=== PATIENT | female | born 1960 | race Hispanic/Latino ===

== ENCOUNTER 2020-09-16 15:36 | Inpatient (IN) | payer MEDICARE ==
[~2020-09-16] VITALS: Ht 162.6 cm; Wt 72.6 kg
[2020-09-16 16:57] LABS: BASOPHILS # (AUTO) 0.1 (0.0-0.1); BASOPHILS % 1.1 % (0.0-1.0); EOSINOPHILS # (AUTO) 0.1 (0.0-0.4); HEMATOCRIT 26.3 % (34.2-44.1); LYMPHOCYTES # (AUTO) 2.4 (1.0-3.2); MEAN CORPUSCULAR HEMOGLOBIN 19.7 pg (28-32); MEAN CORPUSCULAR HGB CONC 30.4 g/dL (31-35); MEAN CORPUSCULAR VOLUME 64.8 fL (81-99); MONOCYTES # (AUTO) 0.7 (0.2-0.8); MONOCYTES % 6.1 % (4.4-11.3); NEUTROPHILS % 70.1 % (38.7-80.0); PLATELET COUNT 491 x10e3/uL (140-360); RED BLOOD COUNT 4.06 x10e6/uL (3.6-5.1); RED CELL DISTRIBUTION WIDTH 16.6 % (11.7-14.4)
[2020-09-16 17:15] LABS: ALANINE AMINOTRANSFERASE 10 IU/L (0-55); ALBUMIN 3.9 g/dL (3.5-5.0); ALBUMIN/GLOBULIN RATIO 1.2 (0.8-2.0); ALKALINE PHOSPHATASE 65 IU/L (40-150); ANION GAP 17.7 mmol/L (8-16); BLOOD UREA NITROGEN 13 mg/dL (7-26); BUN/CREATININE RATIO 15 (6-25); CALCIUM 8.7 mg/dL (8.4-10.2); CARBON DIOXIDE 27 mmol/L (22-29); CHLORIDE 83 mmol/L (98-107); CREATINE KINASE 58 IU/L (29-168); CREATININE, SERUM 0.88 mg/dL (0.57-1.11); EST GLOMERULAR FILTRATION RATE > 60 ML/MIN (60-); GLUCOSE 119 mg/dL (74-118); SODIUM 125 mmol/L (136-145)
[2020-09-16 17:20] LABS: POTASSIUM 2.7 mmol/L (3.5-5.1)
[2020-09-16] MEDS ORDERED: POTASSIUM CHLORIDE 20 MEQ TAB CR PO STA (18:28)
[2020-09-16] MEDS ORDERED: ONDANSETRON HCL INJ 2MG/ML 2ML 2 MG/ML VIAL IV STA (18:28)
[2020-09-16] MEDS ORDERED: MORPHINE SULFATE INJ 4 MG/ML INJ 1ML IV ONE (18:30)
[2020-09-16 19:54] LABS: AMPHETAMINES SCREEN,URINE NEGATIVE (NEGATIVE); BENZODIAZEPINES SCREEN,URINE NEGATIVE (NEGATIVE); PHENCYCLIDINE SCREEN,URINE NEGATIVE (NEGATIVE)
[2020-09-16 20:30] VITALS: BP 158/74
[2020-09-16 20:47] VITALS: BP 158/74
[2020-09-16] MEDS ORDERED: LISINOPRIL40 MG PO (22:29)
[2020-09-16] MEDS ORDERED: LEVOTHYROXINE112 MCG PO (22:29)
[2020-09-16] MEDS ORDERED: ATORVASTATIN CA20 MG PO (22:29)
[2020-09-16] MEDS ORDERED: OMEPRAZOLE40 MG PO (22:29)
[2020-09-16] MEDS ORDERED: CYMBALTA30 MG (22:29)
[2020-09-16] MEDS ORDERED: METFORMIN HCL500 MG PO (22:29)
[2020-09-16] MEDS ORDERED: CLONAZEPAM0.5 MG PO (22:29)
[2020-09-16] MEDS ORDERED: LINZESS145 MCG PO (22:29)
[2020-09-16] MEDS ORDERED: NEURONTIN300 MG PO (22:29)
[2020-09-16] MEDS ORDERED: ULTRAM50 MG PO (22:29)
[2020-09-16] MEDS ORDERED: TRAMADOL HCL 50 MG TAB PO SCH (23:45)
[2020-09-16] MEDS ORDERED: ESIDRIX25 MG PO (23:48)
[2020-09-17] VITALS (10 sets, daily range): BP systolic 71–153; BP diastolic 48–76
[2020-09-17] MEDS: LISINOPRIL 20 MG TAB PO SCH ×2 (00:17→08:57)
[2020-09-17] MEDS: ATORVASTATIN 20 MG TAB PO SCH ×2 (00:17→20:29)
[2020-09-17] MEDS: GABAPENTIN 300 MG CAP PO SCH ×3 (00:17→16:07)
[2020-09-17 07:01] LABS: CLARITY,URINE CLEAR (CLEAR); COLOR,URINE YELLOW (YELLOW); KETONES,URINE NEGATIVE (NEGATIVE); LEUKOCYTE ESTERASE ,URINE NEGATIVE (NEGATIVE); NITRITE,URINE NEGATIVE (NEGATIVE); PROTEIN,URINE DIPSTICK NEGATIVE (NEGATIVE); URINE UROBILINOGEN 1 mg/dL (0.2 - 1)
[2020-09-17 07:22] LABS: BLOOD UREA NITROGEN 11 mg/dL (7-26); BUN/CREATININE RATIO 14 (6-25); CALCIUM 8.9 mg/dL (8.4-10.2); CARBON DIOXIDE 30 mmol/L (22-29); CHLORIDE 91 mmol/L (98-107); CREATININE, SERUM 0.78 mg/dL (0.57-1.11); EST GLOMERULAR FILTRATION RATE > 60 ML/MIN (60-); GLUCOSE 108 mg/dL (74-118); SODIUM 133 mmol/L (136-145)
[2020-09-17] MEDS: LEVOTHYROXINE SODIUM 125 MCG TAB PO SCH (07:44)
[2020-09-17 07:56] LABS: CHOL/HDL RATIO 3.9 (3.0-3.6); PHOSPHORUS 3.5 MG/DL (2.3-4.7)
[2020-09-17] MEDS ORDERED: METFORMIN HCL 500 MG TAB PO SCH (08:00)
[2020-09-17 08:06] LABS: RBC,URINE 0-5 /HPF (0-5); WBC,URINE (MAN) 0-5 /HPF (0-5)
[2020-09-17 08:07] LABS: BACTERIA,URINE FEW /HPF; EPITHELIAL CELLS,URINE RARE /LPF
[2020-09-17] MEDS: LINACLOTIDE 145 MCG CAPSULE PO SCH (08:53)
[2020-09-17] MEDS: PANTOPRAZOLE SOD 40 MG TABEC PO SCH (08:53)
[2020-09-17] MEDS: DULOXETINE HCL 30 MG DELAYED RELEASE PO SCH ×2 (08:54→16:07)
[2020-09-17] MEDS: SODIUM CHLORIDE 1 GM TAB PO SCH ×3 (08:54→20:29)
[2020-09-17] MEDS: SODIUM CHLORIDE 0.9% 1000ML 1,000 ML IV SCH ×2 (08:57→23:11)
[2020-09-17] MEDS: TRAMADOL HCL 50 MG TAB PO SCH ×2 (10:09→20:30)
[2020-09-17] MEDS ORDERED: SODIUM CHLORIDE1 GM PO (10:15)
[2020-09-17] MEDS ORDERED: POTASSIUM CHLORIDE 20 MEQ TAB CR PO ONE (10:15)
[2020-09-17] MEDS ORDERED: KEFLEX125 MG/5 M PO (10:15)
[2020-09-17] MEDS ORDERED: ACETAMINOPHEN 325 MG TAB PO PRN (11:15)
[2020-09-17] MEDS ORDERED: SODIUM CHLORIDE 0.9% 1000ML 2,180 ML IV SCH (13:15)
[2020-09-17] MEDS ORDERED: SODIUM CHLORIDE 0.9% 1000ML 1,000 ML IV ONE (15:00)
[2020-09-17] MEDS ORDERED: IOPAMIDOL 370 MG/ML 200 ML INFUS..BTL INJ ONE (15:44)
[2020-09-17] MEDS ORDERED: SODIUM CHLORIDE 0.9% 100 ML ONE (15:44)
[2020-09-18] VITALS (9 sets, daily range): BP systolic 96–146; BP diastolic 58–80
[2020-09-18] MEDS: DULOXETINE HCL 30 MG DELAYED RELEASE PO SCH ×2 (08:22→16:44)
[2020-09-18] MEDS: LEVOTHYROXINE SODIUM 125 MCG TAB PO SCH (08:22)
[2020-09-18] MEDS: LINACLOTIDE 145 MCG CAPSULE PO SCH (08:22)
[2020-09-18] MEDS: PANTOPRAZOLE SOD 40 MG TABEC PO SCH (08:22)
[2020-09-18] MEDS: SODIUM CHLORIDE 1 GM TAB PO SCH ×3 (08:23→20:29)
[2020-09-18] MEDS: LISINOPRIL 20 MG TAB PO SCH (08:23)
[2020-09-18] MEDS: GABAPENTIN 300 MG CAP PO SCH ×2 (08:23→16:44)
[2020-09-18] MEDS: ATORVASTATIN 20 MG TAB PO SCH ×2 (08:30→20:29)
[2020-09-18 08:51] LABS: BASOPHILS # (AUTO) 0.1 (0.0-0.1); BASOPHILS % 1.4 % (0.0-1.0); EOSINOPHILS # (AUTO) 0.2 (0.0-0.4); EOSINOPHILS % 2.6 % (0.0-6.0); HEMATOCRIT 24.7 % (34.2-44.1); LYMPHOCYTES # (AUTO) 1.8 (1.0-3.2); LYMPHOCYTES % 27.9 % (18.0-39.1); MEAN CORPUSCULAR HEMOGLOBIN 19.4 pg (28-32); MEAN CORPUSCULAR HGB CONC 28.3 g/dL (31-35); MEAN CORPUSCULAR VOLUME 68.4 fL (81-99); MONOCYTES # (AUTO) 0.5 (0.2-0.8); MONOCYTES % 6.9 % (4.4-11.3); NEUTROPHILS % 60.7 % (38.7-80.0); PLATELET COUNT 380 x10e3/uL (140-360); RED BLOOD COUNT 3.61 x10e6/uL (3.6-5.1); RED CELL DISTRIBUTION WIDTH 16.9 % (11.7-14.4)
[2020-09-18 08:58] LABS: ANION GAP 12.7 mmol/L (8-16); BLOOD UREA NITROGEN 12 mg/dL (7-26); BUN/CREATININE RATIO 18 (6-25); CALCIUM 7.8 mg/dL (8.4-10.2); CARBON DIOXIDE 25 mmol/L (22-29); CHLORIDE 101 mmol/L (98-107); CREATININE, SERUM 0.67 mg/dL (0.57-1.11); EST GLOMERULAR FILTRATION RATE > 60 ML/MIN (60-); GLUCOSE 96 mg/dL (74-118); POTASSIUM 3.7 mmol/L (3.5-5.1); SODIUM 135 mmol/L (136-145)
[2020-09-18] MEDS: TRAMADOL HCL 50 MG TAB PO SCH ×3 (09:00→20:29)
[2020-09-18 10:13] LABS: ANISOCYTOSIS SLIGHT; HYPOCHROMASIA MODERATE; PLATELET ESTIMATE SLIGHTLY INCREASED; TARGET CELLS FEW
[2020-09-18 10:14] LABS: OVALOCYTES FEW; PLATELET MORPHOLOGY COMMENT NORMAL; RBC MORPHOLOGY COMMENT ABNORMAL
[2020-09-18] MEDS: SODIUM CHLORIDE 0.9% 1000ML 1,000 ML IV SCH ×2 (12:43→20:29)
[2020-09-19] VITALS: BP 118/70
[2020-09-19 04:00] VITALS: BP 136/74
[2020-09-19] MEDS: LEVOTHYROXINE SODIUM 125 MCG TAB PO SCH (07:30)
[2020-09-19] MEDS: PANTOPRAZOLE SOD 40 MG TABEC PO SCH (07:30)
[2020-09-19] MEDS: LINACLOTIDE 145 MCG CAPSULE PO SCH (07:30)
[2020-09-19 08:18] VITALS: BP 146/83
[2020-09-19] MEDS: DULOXETINE HCL 30 MG DELAYED RELEASE PO SCH ×2 (09:00→17:00)
[2020-09-19] MEDS: SODIUM CHLORIDE 1 GM TAB PO SCH ×2 (09:00→15:15)
[2020-09-19] MEDS: GABAPENTIN 300 MG CAP PO SCH ×2 (09:00→17:00)
[2020-09-19] MEDS: TRAMADOL HCL 50 MG TAB PO SCH (09:00)
[2020-09-19] MEDS: LISINOPRIL 20 MG TAB PO SCH (09:00)
[2020-09-19 09:07] VITALS: BP 146/83
[2020-09-19] MEDS: SODIUM CHLORIDE 0.9% 1000ML 1,000 ML IV SCH ×2 (09:30→17:38)
[2020-09-19 12:40] VITALS: BP 158/75
[2020-09-19 16:49] VITALS: BP 158/67
== END 2020-09-19 17:45 | disposition home or self-care (01) | DRG 690 ==
LOC: ER 16:03 → ERHOLD 19:37 → IMCU 21:51 → OBSVTOIN 09-17 15:49 → MED/SURG 09-18 16:12
PROVIDERS: ADMIT Internal Medicine; ATTEND Internal Medicine
DX: N39.0 Urinary tract infection, site not specified (principal); F84.0 Autistic disorder; E87.1 Hypo-osmolality and hyponatremia; I95.1 Orthostatic hypotension; E87.6 Hypokalemia; F17.210 Nicotine dependence, cigarettes, uncomplicated; E11.9 Type 2 diabetes mellitus without complications; Z20.822 Contact with and (suspected) exposure to COVID-19
CPT/HCPCS: 36415; 70450; 70498; 71045; 72125; 80048; 80053; 80061; 80307; 81001; 82550; 82553; 82948; 83036; 83735; 83880; 84100; 84295; 84484; 85025; 93005; 93306; 93880; 97139; 99284; G0378; J2270; J2405; J7030; J7050; Q9967